=== PATIENT | female | born 1970 | race Caucasian/White ===

== ENCOUNTER 2019-10-28 18:53 | Emergency (ER) | payer MEDICAID ==
[~2019-10-28] VITALS: Ht 157.5 cm; Wt 61.0 kg
[2019-10-28 18:59] VITALS: BP 148/56
== END 2019-10-28 21:08 | disposition home or self-care (01) ==
LOC: ER 18:53
DX: N61.0 Mastitis without abscess (principal)
CPT/HCPCS: 99282; 99283